=== PATIENT | male | born 1935 | race Caucasian/White ===

== ENCOUNTER 2017-08-18 12:38 | Outpatient (CLI) | payer MEDICARE, OTHER | END 2017-08-18 12:39 | disposition short-term general hospital (02) | LOC: EMS 12:38 | PROVIDERS: ATTEND Surgery | DX: R55 Syncope and collapse (principal); R53.1 Weakness | CPT/HCPCS: A0425; A0427 ==

== ENCOUNTER 2017-12-31 13:53 | Outpatient (CLI) | payer MEDICARE, OTHER | END 2017-12-31 13:54 | disposition short-term general hospital (02) | LOC: EMS 13:53 | PROVIDERS: ATTEND Surgery | DX: R53.1 Weakness (principal); R42 Dizziness and giddiness; R11.0 Nausea; R35.0 Frequency of micturition; R29.6 Repeated falls | CPT/HCPCS: A0425; A0427 ==

== ENCOUNTER 2018-12-29 13:57 | Outpatient (CLI) | payer MEDICARE, OTHER ==
--- NOTE | 2018-12-29 15:48 | XRAY Report ---
Reason: HOARSENESS,COUGH Procedure Date: 12/29/2018 Accession Number: [id number] / [id number] Procedure: [facility] - Chest 2 View X-Ray CPT Code: 09595 FULL RESULT: EXAM: CHEST RADIOGRAPHY EXAM DATE: 12/29/2018 02:19 PM. CLINICAL HISTORY: Hoarseness, cough. COMPARISON: [facility] W/PA CHEST RT 01/24/2016 10:40 AM. TECHNIQUE: 2 views. FINDINGS: Lungs/Pleura: No focal opacities evident. No pleural effusion. No pneumothorax. Normal volumes. Mediastinum: Heart and mediastinal contours are unremarkable with the exception of calcifications of the aortic arch. Other: None. IMPRESSION: No acute airspace disease is detected. [facility]
== END 2018-12-29 13:58 | disposition home or self-care (01) ==
LOC: DI.WCP 13:57
PROVIDERS: ATTEND Family Medicine
DX: R49.0 Dysphonia (principal); R05 Cough
CPT/HCPCS: 71046

== ENCOUNTER 2019-09-02 17:31 | Outpatient (CLI) | payer MEDICARE, OTHER | END 2019-09-02 17:32 | disposition home or self-care (01) | LOC: COV 17:31 | PROVIDERS: ATTEND Family Medicine | DX: R05 Cough (principal); R50.9 Fever, unspecified | CPT/HCPCS: 81599; U0002 ==

== ENCOUNTER 2021-04-15 22:29 | Outpatient (CLI) | payer MEDICARE, OTHER | END 2021-04-15 22:30 | disposition EMS.NT | LOC: EMS 22:29 | DX: R05.9 Cough, unspecified (principal); R50.9 Fever, unspecified; R11.2 Nausea with vomiting, unspecified ==

== ENCOUNTER 2022-02-16 12:20 | Outpatient (CLI) | payer MEDICARE, OTHER | END 2022-02-16 12:21 | disposition EMS.NT | LOC: EMS 12:20 | DX: R55 Syncope and collapse (principal) ==